=== PATIENT | male | born 1940 | race Asian ===

== ENCOUNTER 2018-10-21 09:17 | Emergency (ER) | payer OTHER ==
--- NOTE | 2018-10-21 09:21 | PDOC ---
History of Present Illness - General Chief Complaint: Injury Stated Complaint: FALL HIT HEAD Time Seen by Provider: 10/21/18 09:18 History Source: Patient Exam Limitations: No Limitations - History of Present Illness Initial Comments: 10/21/18 09:20 78 year old man with a significant past medical history of diabetes, hypertension, portal hypertension, hypercholesterolemia, cholangitis s/p surgery (10/19) who presents after a falling while taking in the trash and hitting the back of his head "heavily". The patient is on Coumadin. [place] he was dragging his trash can he tripped. The patient denies losing consciousness and a neighbor saw him after he fell and helped him up immediately. The patient admits to some lightheadedness after he fell, but denies changes in vision, hearing, chest pain , shortness of breath, incontinence. At bedside the patient denies headache, pain to other extremities, neck pain, chest pain, shortness of breath, new abdominal pain, new back pain. Denies recent travel, N/V/D/C, dysuria or hematuria. He has no other complaints at bedside. Past History - Past Medical History Allergies/Adverse Reactions: Allergies Allergy/AdvReac Type Severity Reaction Status Date / Time No Known Allergies Allergy Verified 10/21/18 09:30 Home Medications: Ambulatory Orders Atorvastatin Ca [Lipitor] 80 mg PO HS 10/21/18 Calcium Carb/Vitamin D3/Vit K1 [Calcium + D Soft Chewable Tab] 1 tab PO DAILY Ezetimibe 10 mg PO DAILY 10/21/18 Insulin Glargine,Hum.rec.anlog [Lantus Solostar PEN -] 30 units SQ ASDIR Insulin Lispro [Humalog] 2 unit SQ ASDIR 10/21/18 Metformin HCl [Glucophage] 500 mg PO BID 10/21/18 Multivit with Iron,Minerals [Complete Senior] 1 each PO DAILY 10/21/18 Spironolactone 25 mg PO BID 10/21/18 Warfarin Sodium 2.5 mg PO ASDIR 10/21/18 Warfarin Sodium 5 mg PO ASDIR 10/21/18 propRANOLol HCL [Inderal -] 20 mg PO DAILY 10/21/18 Diabetes: Yes HTN: Yes Hypercholesterolemia: Yes - Surgical History Abdominal Surgery: Yes Cholecystectomy: Yes (icu /intubation) - Suicide/Smoking/Psychosocial Hx Smoking Status: No Smoking History: Never smoked Have you smoked in the past 12 months: No Number of Cigarettes Smoked Daily: 0 Hx Alcohol Use: No Drug/Substance Use Hx: No Substance Use Type: None Hx Substance Use Treatment: No Review of Systems - Review of Systems Able to Perform ROS?: Yes Is the patient limited Serbian proficient: No Constitutional: No: Chills, Diaphoresis, Fever HEENTM: No: Blurred Vision, Tinnitus Respiratory: No: Cough, Orthopnea, Shortness of Breath Cardiac (ROS): No: Chest Pain, Lightheadedness, Palpitations, Syncope ABD/GI: No: Constipated, Diarrhea, Nausea, Vomiting : No: Burning, Dysuria, Hematuria Musculoskeletal: No: Neck Pain Neurological: No: Headache, Numbness, Tingling *Physical Exam - Physical Exam Comments: 10/21/18 10:03 GENERAL: Awake, alert, and fully oriented, in no acute distress HEAD: No signs of trauma, normocephalic, atraumatic EYES: EOMI, sclera anicteric, conjunctiva clear ENT: oropharynx clear without exudates. Moist mucosa NECK: Normal ROM, supple LUNGS: No distress, speaks full sentences, clear to auscultation bilaterally HEART: Regular rate and rhythm, normal S1 and S2, no murmurs, rubs or gallops, peripheral pulses normal and equal bilaterally. ABDOMEN: Soft, nontender, normoactive bowel sounds. No guarding, no rebound. No masses EXTREMITIES : Normal inspection, Normal range of motion, no edema. No clubbing or cyanosis. NEUROLOGICAL: Cranial nerves II through XII grossly intact. Normal speech, normal gait, no focal sensorimotor deficits SKIN: Warm, Dry, normal turgor, no rashes or lesions noted ED Treatment Course - LABORATORY CBC & Chemistry Diagram: 10/21/18 10:07 10/21/18 10:07 Medical Decision Making - Medical Decision Making 10/21/18 10:03 78 year old man with a significant past medical history of diabetes, hypertension, portal hypertension, hypercholesterolemia, cholangitis s/p surgery (10/19) who presents after a falling while taking in the trash and hitting the back of his head "heavily". The patient is on Coumadin. [place] he was dragging his trash can he tripped. The patient denies losing consciousness and a neighbor saw him after he fell and helped him up immediately. The patient admits to some lightheadedness after he fell, but denies changes in vision, hearing, chest pain , shortness of breath, incontinence. ED Course: consider arrythmia vs acs vs uti r/o intracranial bleed vs c spine fx cbc, cmp, ptt, pt/inr, ua, head ct, cervical spine ct. 10/21/18 11:14 labwork unremarkable pt/inr < [address] EKG: sinus bradycardia rhythm HR 59, no interval abnormalities, narrow QRS, ST and T wave segments and morphology normal. 10/21/18 12:[address]: enlarged ventricles concerning for normal pressure hydrocephalus, no intracranial bleed. Pending neurology consult Patient was walked and did not exhibit ataxic gait but with unsteadiness. Patient does report a history of incontinence and unsteadiness over the past year. 10/21/18 13:20 Neurology will see patient on Thursday. *DC/Admit/Observation/Transfer Diagnosis at time of Disposition: Fall, Head trauma - Discharge Dispostion Disposition: HOME Condition at time of disposition: Stable Decision to Admit order: No - Referrals Referrals: Jeff Corrales DO [Staff Physician] - Shaan Rubio MD [Staff Physician] - - Patient Instructions Printed Discharge Instructions: How to Prevent Falls, DI for Closed Head Injury Additional Instructions: You were seen in the ED for complaints of fall with head trauma In the ED you were evaluated with labwork and imaging. Your results were significant for possible Normal Pressure Hydrocephalus. There does not appear to be an acute need for immediate hospitalization, however it if important that you follow up with Neurology. You are advised to follow up with your Primary Care Physician within 1 week. You were given a referral to Neurology and Urology and are advised to follow up within the next week. Return to the ED immediately if you experience worsening headache, nausea, vomiting, loss of consciousness, chest pain, palpitations or shortness of breath. - Post Discharge Activity Forms/Work/School Notes: Back to Work
--- NOTE | 2018-10-21 09:22 | PDOC ---
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 Pt states he was in his usual state of health until this morning when he was bringing his trash can back from the road and fell backwards, hitting his back and his head on the floor. it was witnessed by a neighbor - no LOC. pt endorses mild headache which has since resolved. no associated n/v, vision changes, neck pain, back pain, extremity pain, recent fever/chills, cp, sob, cough, dysuria, diarrhea, melena, diaphoresis. pt endorses mild chronic loomis that has beenw orked up by his foam charger - non today though. pt on stable dose of coumadin, 5mg 6 days a week 2.5 on the other day PMD: Dr. Bhardwaj Cards: Dr. Gonzales - Physicial Exam PE: 10/21/18 10:26 GENERAL: The patient is awake, alert, and fully oriented, Nontoxic - in no acute distress. HEAD: Normocephalic, atraumatic. EYES: extraocular movements intact, sclera anicteric, conjunctiva clear. ENT: Normal voice, Moist mucous membranes. NECK: Normal range of motion, supple LUNGS: Breath sounds equal, clear to auscultation bilaterally. No wheezes, no rhonchi, no rales. HEART: Regular rate and rhythm, normal S1 and S2 without murmur, rub or gallop. ABDOMEN: Soft, nontender, No guarding, no rebound. .No CVA tenderness EXTREMITIES: Normal range of motion, trace edema bl. No clubbing or cyanosis. No cords, erythema, or tenderness. NEUROLOGICAL: No facial assymetry, Normal speech, mvoing all 4 extremities spontaneously and symmetrically Back: No midline tenderness to the cervical, thoracic or lumbar spine Musculoskelatal: FROM of b/l shoulders, elbows, wrist. FROM of hips, knees, ankles - No signs of ecchymosis, erythema, or crepitus noted on palpation extremities, chest wall, clavicals, ribs, back. PSYCH: Normal mood, normal affect. SKIN: Warm, Dry, normal turgor, - Medical Decision Making 10/21/18 10:29 Suspect mechanical fall will obtain blood work to rule out anemia, metabolic derangements, will check INR status. CT head to rule out ICH, UA to rule out UTI 10/21/18 11:[address] head w/o bleed, however there are signs of dilated ventricles - pt notse he has had unsteady gait for several years -->?NPH? will dw neuro 10/21/18 13:17 case anju neuro will fu with patient on thursday for further evaluation Heart Score/ECG Review - ECG Impressions Comment:: 10/21/18 10:29 Twelve-lead EKG was performed and reviewed by me. There is normal sinus rhythm with a HR of 59 The axis is normal. The intervals are normal. nonspecific t wave abnormality
[2018-10-21 09:54] VITALS: TEMP 97.3; BMI 26.9
[2018-10-21 10:17] LABS: BASO % 0.4 % (0-2.0); EOS % 2.3 % (0-4.5); HEMATOCRIT 39.3 % (35.4-49); LYMPH % 17.1 % (8-40); MCH 28.8 pg (25.7-33.7); MCHC 33.1 g/dl (32.0-35.9); MEAN CELL VOLUME 87.1 fl (80-96); MEAN PLT VOLUME 8.8 fl (7.5-11.1); MONO % 8.6 % (3.8-10.2); NEUT % 71.6 % (42.8-82.8); PLATELET COUNT 135 K/MM3 (134-434); RBC 4.51 M/mm3 (4.00-5.60); RDW 12.7 % (11.9-15.9); WHITE BLOOD COUNT 5.3 K/mm3 (4.0-10.8)
[2018-10-21 10:31] LABS: ALBUMIN 3.6 g/dl (3.5-5.0); ALK PHOS 56 U/L (32-92); ANION GAP 4 MMOL/L (8-16); BILIRUBIN,TOTAL 1.2 mg/dl (0.2-1.0); BLOOD UREA NITROGEN 14 mg/dl (7-18); CALCIUM 9.1 mg/dl (8.4-10.2); CHLORIDE 103 mmol/L (98-107); CO2 27 mmol/L (22-28); GLUCOSE,RANDOM 127 mg/dl (74-106); POTASSIUM 4.7 mmol/L (3.5-5.1); SGOT/AST 25 U/L (10-42); SGPT/ALT 24 U/L (10-40); SODIUM 134 mmol/L (136-145); TOT PROT 7.3 g/dl (6.4-8.3)
[2018-10-21 10:36] LABS: INR 1.49 (0.82-1.09); PROTHROMBIN TIME (PATIENT) 16.5 SEC (10.2-13.0)
[2018-10-21 10:38] LABS: URINE APPEARANCE Clear; URINE BILIRUBIN Negative (NEGATIVE); URINE COLOR Yellow; URINE GLUCOSE (UA) Negative (NEGATIVE); URINE KETONE Negative (NEGATIVE); URINE LEUK ESTERASE Negative (NEGATIVE); URINE NITRITE Negative (NEGATIVE); URINE PROTEIN Negative (NEGATIVE); URINE UROBILINOGEN 0.2 (0.2-1.0)
[2018-10-21 13:43] VITALS: BP 110/54; PULSE 65
--- NOTE | 2018-10-22 11:36 | EKG ---
Test Reason : Blood Pressure : / mmHG Vent. Rate : 059 BPM Atrial Rate : 059 BPM P-R Int : 136 ms QRS Dur : 084 ms QT Int : 428 ms P-R-T Axes : 059 047 065 degrees QTc Int : 423 ms SINUS BRADYCARDIA NONSPECIFIC T WAVE ABNORMALITY ABNORMAL ECG NO PREVIOUS ECGS AVAILABLE Confirmed by NIMCO MERRITT, JENNY ([id number]) on 10/22/2018 11:36:21 AM Referred By: MAURO GARCIA Confirmed By:JENNY RINALDI MD
== END 2018-10-21 13:42 | disposition home or self-care (01) ==
LOC: FER 09:17
DX: S09.90XA Unspecified injury of head, initial encounter (principal); W18.39XA Other fall on same level, initial encounter; Y93.89 Activity, other specified; Y92.89 Other specified places as the place of occurrence of the external cause; E11.9 Type 2 diabetes mellitus without complications; I10 Essential (primary) hypertension; E78.00 Pure hypercholesterolemia, unspecified; K76.6 Portal hypertension
CPT/HCPCS: 36415; 70450-TC; 72125-TC; 80053; 81003; 85025; 85610; 85730; 93005; 99282-25

== ENCOUNTER 2024-02-14 10:06 | Emergency (ER) | payer OTHER ==
[2024-02-14 10:21] VITALS: BP 120/45; PULSE 70; RESP 16; TEMP 97.4; BMI 27.4
== END 2024-02-14 12:10 | disposition home or self-care (01) ==
LOC: FER 10:06
DX: S00.03XA Contusion of scalp, initial encounter (principal); W01.198A Fall on same level from slipping, tripping and stumbling with subsequent striking against other object, initial encounter
CPT/HCPCS: 70450-TC; 72125-TC; 99284-25